=== PATIENT | male | born 1975 | race Two or more races ===

== ENCOUNTER 2016-11-12 14:35 | Observation (INO) | payer OTHER ==
--- NOTE | 2016-11-12 14:46 | PDOC ---
Rapid Medical Evaluation Time Seen by Provider: 11/12/16 14:41 Medical Evaluation: Allergies Allergy/AdvReac Type Severity Reaction Status Date / Time Penicillins Allergy Intermediate Hives Verified 11/05/16 09:17 11/12/16 14:42 RME Note: I have performed a brief, in-person evaluation of this patient . This patient presents with CC: Difficulty swallowing, weakness, post Throat surgery of 6 days ago Pertinent PE findings are: Difficulty opening mouth, bleeding I have ordered: Labs sent, STS neck sent The patient will proceed to ED for further evaluation. ,
--- NOTE | 2016-11-12 15:32 | PDOC ---
History of Present Illness - General Stated Complaint: PAIN/WEAKNESS Time Seen by Provider: 11/12/16 14:41 - History of Present Illness Initial Comments: 11/12/16 15:25 The pt is a 41 year old english speaking male with no significant PMH who presents to ED s/p uvulopharyngopalatoplasty and septal surgery 6 days ago. He is complaining of neck pain, 8/10, difficulty with swallowing, opening mouth, difficulty taking deep breath. He also has pain in his nose and increased sensitivity to noises. The history is taken from his who is present at bedside and she states that he doesn't eat or drink and it got progressively worse since the surgery. She also states that an odor is coming from his mouth and he lost 20 lbs in 6 days. He denies chest pain, SOB, abdominal pain, N/V, diarrhea, constipation, dysuria, fever. ENT: Dr. Easton Castaneda No PCP Past History - Past Medical History Allergies/Adverse Reactions: Allergies Allergy/AdvReac Type Severity Reaction Status Date / Time Penicillins Allergy Intermediate Hives Verified 11/12/16 14:46 Home Medications: Ambulatory Orders NK [No Known Home Medication] 11/03/16 Anemia: No Asthma: No COPD: No Other medical history: vasectomy Comment:: 11/12/16 18:33 uvulopharyngopalatoplasty and septal surgery - Surgical History Other Surgical History: 11/12/16 18:32 vasectomy - Psycho/Social/Smoking Cessation Hx Anxiety: No Suicidal Ideation: No Smoking History: Never smoked Have you smoked in the past 12 months: No Information on smoking cessation initiated: No Hx Alcohol Use: No Drug/Substance Use Hx: No Substance Use Type: None Review of Systems - Review of Systems Able to Perform ROS?: No Comments:: 11/12/16 18:08 REVIEW OF SYSTEMS CONSTITUTIONAL: generalized weakness, loss of appetite, weight change Absent: fever, chills, diaphoresis HEENT: throat pain, throat swelling, difficulty swallowing, ear pain, noise sensitivity Absent: rhinorrhea, nasal congestion, , mouth swelling, eye pain, visual changes CARDIOVASCULAR: Absent: chest pain, syncope, palpitations, irregular heart rate, lightheadedness , peripheral edema RESPIRATORY: Absent: cough, shortness of breath, dyspnea with exertion, orthopnea, wheezing, GASTROINTESTINAL: Absent: abdominal pain, abdominal distension, nausea, vomiting, diarrhea, constipation, GENITOURINARY: Absent: dysuria, frequency, urgency, hesitancy, hematuria, flank pain, genital pain MUSCULOSKELETAL: Absent: myalgia, arthralgia, joint swelling, back pain, neck pain SKIN: Absent: rash, itching, pallor NEUROLOGIC: Absent: headache, focal weakness or paresthesias, dizziness, unsteady gait, seizure PSYCHIATRIC: Absent: anxiety, depression Is the patient limited Lithuanian proficient: Yes *Physical Exam - Vital Signs Last Vital Signs Temp Pulse Resp BP Pulse Ox 97.6 F 75 18 149/92 99 11/12/16 14:42 11/12/16 14:42 11/12/16 14:42 11/12/16 14:42 11/12/16 14:42 - Physical Exam Comments: 11/12/16 18:11 GENERAL: The patient is awake, alert, and fully oriented, in no acute distress, not speaking due to pain. HEAD: Normal with no signs of trauma. EYES: PERRL, extraocular movements intact, sclera anicteric, conjunctiva clear. ENT: Ears normal, nares patent with clotted blood inside, oropharynx: erythema, white exudates B/L, no uvula deviation, dry mucous membranes, no trismus , slowly opening mouth. NECK: Trachea midline, tender to palpation. LUNGS: Breath sounds equal, clear to auscultation bilaterally, no wheezes, no crackles, no accessory muscle use. HEART: Regular rate and rhythm, S1, S2 without murmur, rub or gallop. ABDOMEN: Soft, nontender, nondistended, normoactive bowel sounds, no guarding, no rebound, no hepatosplenomegaly, no masses. EXTREMITIES: no edema. NEUROLOGICAL: Normal speech, gait not observed. PSYCH: Normal mood, normal affect. SKIN: Warm, dry, normal turgor, no rashes or lesions noted ED Treatment Course - LABORATORY CBC & Chemistry Diagram: 11/12/16 14:55 11/12/16 14:55 Medical Decision Making - Medical Decision Making 11/12/16 18:[address] Easton arriaga who is on vacation. We were told that the pt was informed that he may have difficulty swallowing and neck pain up to 2 weeks. The pt went for neck x ray to r/o retropharyngeal/peritonsillar abscess. He was given IVF and Morphine 2 mg IV and then 4 mg which helped him to relieve the pain. He is afebrile and no major lab abnormalities, elevated BUN. 11/12/16 18:[address] Holden office requesting admission to observation. *DC/Admit/Observation/Transfer Diagnosis at time of Disposition: Dehydration - Discharge Dispostion Condition at time of disposition: Improved Admit: Yes - Referrals Referrals: Fred Ribeiro MD [Primary Care Provider] -
[2016-11-12 15:37] LABS: CREATININE 1.1 mg/dL (0.7-1.3)
[2016-11-12 15:40] LABS: BASOPHIL 0.3 % (0-2.0); EOSINOPHIL 1.3 % (0-4.5); MCH 28.2 pg (25.7-33.7); MCHC 33.4 g/dl (32.0-35.9); MEAN CELL VOLUME 84.5 fl (80-96); MEAN PLT VOLUME 10.5 fl (7.5-11.1); NEUTROPHILS 61.4 % (42.8-82.8); PLATELET COUNT 274 K/MM3 (134-434); RDW 13.2 % (11.9-15.9); WHITE BLOOD COUNT 7.9 K/mm3 (4.0-10.0)
[2016-11-12] MEDS ORDERED: SODIUM CHLORIDE 1,000 ML IV STA (15:40)
--- NOTE | 2016-11-12 15:51 | PDOC ---
[id number] I have performed the following: I have examined & evaluated the patient, The case was reviewed & discussed with the resident, I agree w/resident's findings & plan - HPI HPI: 41y M no significant hx presents s/p ENT surgery approx 6 days ago, has been feeling significant throat discomfort since then with pain and difficulty swallowing, opening his mouth. No associated fever, bleeding, discharge. Pt does note that his breath smells foul and he has had weight loss for ~20lb over the past 6 days. On exam there is some post op changes in his throat, no signs of assymetry, abscess or acute infection. Suspect typical post op changes. Pts labs and vitals are unremarkable. Attempted to treat the pts pain and hydrated with fluids, however the the pt did not improve with supportive mangaement and was still uanble to tolerate oral intake. Pt was admitted to observation for pain control. Resident attempted to contact the ENT, however the pts doctor was on vacation. - Physicial Exam PE: 11/13/16 08:42 see above - Medical Decision Making 11/13/16 08:42 see above
[2016-11-12] MEDS ORDERED: morphine CARPU-JECT 2 MG/1 ML DISP.SYRIN IVPUSH ONE (16:11)
[2016-11-12] MEDS ORDERED: morphine CARPU-JECT 2 MG/1 ML DISP.SYRIN ONE (16:23)
[2016-11-12] MEDS ORDERED: morphine CARPU-JECT 4 MG/1 ML DISP.SYRIN IVPUSH ONE (17:51)
[2016-11-12] MEDS ORDERED: morphine CARPU-JECT 4 MG/1 ML DISP.SYRIN ONE (18:15)
[2016-11-12 22:27] VITALS: BMI 27.1
[2016-11-12] MEDS ORDERED: KETOROLAC TROMETHAMINE 30 MG/1 ML VIAL IVPUSH ONE (22:45)
[2016-11-12] MEDS ORDERED: KETOROLAC TROMETHAMINE 30 MG/1 ML VIAL IVPUSH PRN (23:33)
[2016-11-13] MEDS: DEXTROSE 5%-0.45% SALINE 1,000 ML IV SCH ×2 (00:25→09:48)
[2016-11-13] MEDS: predniSONE 20 MG TABLET (UD) PO SCH ×2 (00:25→09:51)
[2016-11-13 08:17] LABS: BASOPHIL 0.1 % (0-2.0); EOSINOPHIL 0.2 % (0-4.5); MCH 28.3 pg (25.7-33.7); MCHC 33.5 g/dl (32.0-35.9); MEAN CELL VOLUME 84.3 fl (80-96); MEAN PLT VOLUME 9.9 fl (7.5-11.1); NEUTROPHILS 77.8 % (42.8-82.8); PLATELET COUNT 198 K/MM3 (134-434); RDW 12.9 % (11.9-15.9); WHITE BLOOD COUNT 6.6 K/mm3 (4.0-10.0)
[2016-11-13 09:08] LABS: ALBUMIN 3.5 g/dl (3.4-5.0); ALK PHOS 85 U/L (45-117); ANION GAP 6 (8-16); BILIRUBIN,TOTAL 0.8 mg/dL (0.2-1.0); CALCIUM 8.6 mg/dL (8.5-10.1); CO2 29 mmol/L (21-32); CREATININE 0.9 mg/dL (0.7-1.3); GLUCOSE,RANDOM 114 mg/dL (74-106); SGOT/AST 12 U/L (15-37); SGPT/ALT 43 U/L (12-78); TOT PROT 7.3 g/dl (6.4-8.2)
--- NOTE | 2016-11-13 12:52 | PN ---
Progress Note (short form) - Note Progress Note: Pt 7 days postop from [facility]PPP, glossectomy. he was admitted for throat pain and dehydration. He feels much better this pm after iv fluids. On exam, orally there no no blood and minmal erythema. He has an open airway and breathing well through bothnostrils, with no nasal blockage. Problem List - Problems (1) Dehydration Assessment/Plan: Postop dehydration. OK to d/c today with pain meds and f/u with Dr Mccormack. Code(s): E86.0 - DEHYDRATION
--- NOTE | 2016-11-13 16:27 | HP ---
Admitting History and Physical - Smoking History Smoking history: Never smoked Have you smoked in the past 12 months: No - Alcohol/Substance Use Hx Alcohol Use: No Home Medications - Allergies Allergies/Adverse Reactions: Allergies Allergy/AdvReac Type Severity Reaction Status Date / Time Penicillins Allergy Intermediate Hives Verified 11/12/16 14:46 - Home Medications Home Medications: Ambulatory Orders NK [No Known Home Medication] 11/03/16 Physical Examination Vital Signs: Vital Signs Temperature 98.1 F 11/13/16 14:32 Pulse Rate 75 11/13/16 14:32 Respiratory Rate 18 11/13/16 14:32 Blood Pressure 128/74 11/13/16 14:32 O2 Sat by Pulse Oximetry (%) 98 11/12/16 23:08 Labs: CBC, BMP 11/13/16 06:15 11/13/16 06:15
[2016-11-13 17:57] VITALS: BP 118/75; PULSE 62; TEMP 98.3
== END 2016-11-13 20:56 | disposition home or self-care (01) ==
LOC: JER 14:35 → SUPCPDRO 14:35 → JERBED 18:51 → J8W 21:17
PROVIDERS: ADMIT Internal Medicine; ATTEND Internal Medicine
DX: E86.0 Dehydration (principal)
CPT/HCPCS: 36415; 70360-TC; 80048; 80053; 85025; 99283-25; G0378